=== PATIENT | female | born 1995 | race Caucasian/White ===

== ENCOUNTER 2018-09-06 05:30 | Inpatient (IN) | payer OTHER ==
[2018-09-06 23:05] VITALS: BMI 30.1
[2018-09-06] MEDS ORDERED: Carboprost 250 MCG/ML AMP IM PRN (23:07)
[2018-09-06] MEDS ORDERED: Methylergonovine 0.2 MG/ML VIAL IM PRN (23:07)
[2018-09-06] MEDS ORDERED: Lidocaine 1% (PF) 30 ML VIAL SC PRN (23:07)
[2018-09-06] MEDS ORDERED: NS w/ Oxytocin 10 units 500 ML IV SCH ×2 (23:07→23:30)
[2018-09-06] MEDS ORDERED: Ondansetron PF 4 MG/2 ML Vial IVP PRN (23:07)
[2018-09-06] MEDS ORDERED: Butorphanol Tartrate 1 MG/ML VIAL SLOW IVP PRN (23:07)
[2018-09-06] MEDS ORDERED: Misoprostol 200 MCG TAB PR PRN (23:07)
[2018-09-06] MEDS ORDERED: HYDROcodone/Acetaminophen 5/325 mg Tablet PO PRN (23:07)
[2018-09-06] MEDS ORDERED: Diphenoxylate HCl/Atropine Tablet PO PRN (23:07)
[2018-09-06] MEDS ORDERED: Ibuprofen 800 MG TAB PO PRN (23:07)
[2018-09-06] MEDS: Lactated Ringer's 1,000 ML IV SCH (23:20)
[2018-09-06 23:37] LABS: Hemoglobin 9.9 g/dL (12.0-16.0); Mean Corpuscular HGB CONC 31.4 g/dL (32.0-36.0); Mean Corpuscular Volume 76.5 fL (78.0-98.0); Mean Platelet Volume 7.6 fL (7.4-10.4); Platelet Count 259 thou/uL (130-400); RBC Distribution Width 15.9 % (11.5-14.5); Red Blood Cell (RBC) Count 4.12 mill/uL (4.00-5.20); White Blood Cell (WBC) Count 10.2 thou/uL (4.8-10.8)
[2018-09-06] MEDS: Misoprostol 100 MCG TAB PO SCH (23:37)
[2018-09-07 00:07] LABS: Hep B Surf Ag Non-Reactive S/CO (NonReactive); Syphilis Antibody Nonreactive (Nonreactive); Syphilis Antibody Index 0.03 S/CO (<1.00 Non-Reactive)
[2018-09-07] MEDS ORDERED: Fentanyl 4 mcg/Bup 0.1% Cadd 100 ML ONE (02:47)
[2018-09-07] MEDS: Lactated Ringer's 1,000 ML IV SCH (02:59)
[2018-09-07] MEDS ORDERED: Ondansetron PF 4 MG/2 ML Vial IVP PRN ×2 (03:32→12:15)
[2018-09-07] MEDS ORDERED: ePHEDrine/0.9% NaCl/PF SYRINGE 50 mg/10 ml SLOW IVP PRN (03:32)
[2018-09-07] MEDS ORDERED: Hydrocerin (Eucerin) Cream 120 gm Jar TOP PRN (03:32)
[2018-09-07] MEDS ORDERED: Lactated Ringer's 500 ML IV PRN (03:32)
[2018-09-07] MEDS ORDERED: diphenhydrAMINE 50 MG/ML VIAL IVP PRN (03:32)
[2018-09-07] MEDS ORDERED: Acetaminophen 325 MG TAB PO PRN (03:32)
[2018-09-07] MEDS ORDERED: Promethazine HCl 25 MG/ML VIAL IM PRN (03:32)
[2018-09-07] MEDS ORDERED: Naloxone HCl 0.4 mg/ml Vial IVP PRN ×2 (03:32)
[2018-09-07] MEDS ORDERED: Fentanyl 4 mcg/Bupivacaine 0.1% Cassette 100 ML EPIDURAL SCH (03:45)
[2018-09-07] MEDS ORDERED: Communication Order-Pharmacy FS SCH (03:45)
[2018-09-07] MEDS: NS / Oxytocin 40 units/1000ml 1,000 ML IV PRN ×2 (10:08→11:05)
[2018-09-07] MEDS ORDERED: Preparation H Ointment 28 GM TUBE PR PRN (12:15)
[2018-09-07] MEDS ORDERED: Lanolin Ointment 7 GM TUBE TOP PRN (12:15)
[2018-09-07] MEDS ORDERED: Bisacodyl 10 MG SUPP PR PRN (12:15)
[2018-09-07] MEDS ORDERED: Benzocaine/Menthol 20-0.5% 60 ML CAN TOP PRN (12:15)
[2018-09-07] MEDS ORDERED: NS / Oxytocin 40 units/1000ml 1,000 ML IV SCH (12:15)
[2018-09-07] MEDS ORDERED: HYDROcodone/Acetaminophen 5/325 mg Tablet PO PRN ×2 (12:15)
[2018-09-07] MEDS ORDERED: Milk Of Magnesia 30 ML UDCUP PO PRN (12:15)
[2018-09-07] MEDS ORDERED: diphenhydrAMINE 25 MG CAP PO PRN (12:15)
[2018-09-07] MEDS: Misoprostol 100 MCG TAB PO SCH (13:18)
[2018-09-07] MEDS: Ibuprofen 800 MG TAB PO SCH ×2 (14:24→21:54)
[2018-09-07] MEDS: Ferrous Sulfate 325 MG TAB PO SCH (17:52)
[2018-09-07] MEDS: Docusate Calcium (SURFAK) 240 MG CAP PO SCH (21:15)
[2018-09-08] MEDS: Ibuprofen 800 MG TAB PO SCH ×2 (05:56→14:21)
[2018-09-08 06:16] LABS: Hemoglobin 9.2 g/dL (12.0-16.0); Mean Corpuscular HGB CONC 30.2 g/dL (32.0-36.0); Mean Corpuscular Hemoglobin 23.5 pg (25.0-35.0); Mean Corpuscular Volume 77.8 fL (78.0-98.0); Mean Platelet Volume 7.6 fL (7.4-10.4); Platelet Count 220 thou/uL (130-400); RBC Distribution Width 16.2 % (11.5-14.5); Red Blood Cell (RBC) Count 3.91 mill/uL (4.00-5.20); White Blood Cell (WBC) Count 14.6 thou/uL (4.8-10.8)
[2018-09-08] MEDS: Ferrous Sulfate 325 MG TAB PO SCH ×2 (08:54→18:32)
[2018-09-08] MEDS: Docusate Calcium (SURFAK) 240 MG CAP PO SCH (08:54)
[2018-09-08] MEDS ORDERED: Prenatal Vitamin 1 TAB PO SCH (09:00)
[2018-09-08 11:13] VITALS: BP 97/56; TEMP 98
== END 2018-09-08 19:37 | disposition home or self-care (01) | DRG 807 ==
LOC: L&D 22:38 → 3SW 09-07 13:15
PROVIDERS: ADMIT Family Medicine; ATTEND Family Medicine
PROC: 10E0XZZ Delivery of Products of Conception, External Approach (ICD-10-PCS; principal; 2018-09-07)
PROC: 0KQM0ZZ Repair Perineum Muscle, Open Approach (ICD-10-PCS; 2018-09-07)
PROC: 10907ZC Drainage of Amniotic Fluid, Therapeutic from Products of Conception, Via Natural or Artificial Opening (ICD-10-PCS; 2018-09-07)
PROC: 3E033VJ Introduction of Other Hormone into Peripheral Vein, Percutaneous Approach (ICD-10-PCS; 2018-09-07)
DX: O70.1 Second degree perineal laceration during delivery (principal); Z37.0 Single live birth; Z3A.39 39 weeks gestation of pregnancy
CPT/HCPCS: 36415; 51702; 85027; 86780; 86850; 86900; 86901; 87340

== ENCOUNTER 2020-03-07 14:02 | Emergency (ER) | payer OTHER, SELFPAY ==
[2020-03-08 10:56] LABS: SARS-CoV-2 MS2 Positive; SARS-CoV-2 N Gene Negative; SARS-CoV-2 S Gene Negative; SARS-CoV-2 orf1ab Negative
== END 2020-03-07 14:47 | disposition home or self-care (01) ==
LOC: ERS 14:02
DX: B34.9 Viral infection, unspecified (principal); R51 Headache; R11.10 Vomiting, unspecified; Z20.828 Contact with and (suspected) exposure to other viral communicable diseases
CPT/HCPCS: 87635; 99283; U0003

== ENCOUNTER 2020-08-22 08:40 | Emergency (ER) | payer OTHER, SELFPAY ==
[2020-08-22 16:15] LABS: SARS-CoV-2 MS2 Positive; SARS-CoV-2 N Gene Negative; SARS-CoV-2 S Gene Negative; SARS-CoV-2 by NAA Not Detected (NotDetected); SARS-CoV-2 orf1ab Negative
== END 2020-08-22 09:05 | disposition home or self-care (01) ==
LOC: ERS 08:40
DX: Z20.828 Contact with and (suspected) exposure to other viral communicable diseases (principal)
CPT/HCPCS: 87635; 99283; U0003

== ENCOUNTER 2021-10-16 09:09 | Emergency (ER) | payer OTHER ==
[2021-10-16] MEDS ORDERED: Ondansetron ODT 4 MG TAB ONE (11:05)
[2021-10-16] MEDS ORDERED: Acetaminophen 500 MG TAB ONE (11:05)
[2021-10-16 15:26] LABS: SARS-CoV-2 PCR by NAA Not Detected (NotDetected)
== END 2021-10-16 11:10 | disposition home or self-care (01) ==
LOC: ERS 09:09
DX: J11.1 Influenza due to unidentified influenza virus with other respiratory manifestations (principal); Z20.822 Contact with and (suspected) exposure to COVID-19
CPT/HCPCS: 87804; 99283; Q0162; U0003; U0005

== ENCOUNTER 2023-01-27 09:21 | Emergency (ER) | payer OTHER, SELFPAY ==
[~2023-01-27 09:21] MED LIST: Iopamidol-370 76% 500 ML MDV (1 ML CHARGE) ONE
[2023-01-27] MEDS ORDERED: Ondansetron PF 4 MG/2 ML Vial ONE (09:45)
[2023-01-27] MEDS ORDERED: Ketorolac Tromethamine 30 MG/ML VIAL ONE (09:45)
[2023-01-27 10:18] LABS: #Eosinphils 0.4 thou/uL (0.0-0.7); #Lymphocytes 2.6 thou/uL (1.20-3.40); #Monocytes 0.4 thou/uL (0.11-0.59); #Neutrophils 4.3 thou/uL (1.40-6.50); %Basophils 0.6 % (0.0-1.0); %Eosinophils 5.4 % (0.0-10.0); %Lymphocytes 33.7 % (21.0-51.0); %Monocytes 4.9 % (0.0-10.0); %Neutrophils 55.3 % (42.0-75.0); Hemoglobin 12.9 g/dL (12.0-16.0); Mean Corpuscular HGB CONC 33.1 g/dL (32.0-36.0); Mean Corpuscular Hemoglobin 31.7 pg (27.0-31.0); Mean Corpuscular Volume 95.7 fl (78.0-98.0); Mean Platelet Volume 7.3 fL (7.4-10.4); Platelet Count 236 10x3/uL (130-400); RBC Distribution Width 11.2 % (11.5-14.5); Red Blood Cell (RBC) Count 4.08 mill/uL (4.20-5.40); White Blood Cell (WBC) Count 7.8 10x3/uL (4.8-10.8)
[2023-01-27 10:38] LABS: ALT (SGPT) 17 U/L (8-55); AST (SGOT) 13 U/L (5-34); Albumin 3.8 g/dL (3.5-5.0); Alkaline Phosphatase 74 U/L (40-110); Anion Gap 11 mmol/L (10-20); BUN (Urea Nitrogen) 8 mg/dL (7.0-18.7); Bilirubin, Total 0.3 mg/dL (0.2-1.2); Calc. Creatinine Clearance 0 mL/min (70-130); Calcium 8.7 mg/dL (7.8-10.44); Carbon Dioxide 22 mmol/L (22-29); Chloride 107 mmol/L (98-107); Estimated GFR 126; Globulin 2.7 g/dL (2.4-3.5); Glucose 89 mg/dL (70-105); Lipase 13 U/L (8-78); Potassium 4.1 mmol/L (3.5-5.1); Protein, Total 6.5 g/dL (6.0-8.3); Sodium 136 mmol/L (136-145)
[2023-01-27 10:39] LABS: Acetaminophen Less than 10.0 mcg/mL (10.0-30.0); Alcohol Less than 10 mg/dL (Less than 10); Magnesium 1.9 mg/dL (1.6-2.6); Salicylate Less than 8.0 mg/dL (15.0-30.0)
[2023-01-27 10:54] LABS: BHCG - Serum Negative (NEGATIVE); Pregs Control Background? CLEAR/WHITE (CLR/WHITE); Pregs Control Bar Appear? YES (CONTROL BAR)
[2023-01-27 11:11] LABS: Amphetamine Not Detected (NotDetected); Barbiturates Screen Not Detected (NotDetected); Benzodiazepine Screen Not Detected (NotDetected); Cocaine Metabolite Screen Detected (NotDetected); Methadone Not Detected (NotDetected); Methamphetamine Not Detected (NotDetected); Opiate Screen Not Detected (NotDetected); Oxycodone Screen Not Detected (NotDetected); Phencyclidine (PCP) Not Detected (NotDetected); THC/Cannabinoid Screen Detected (NotDetected); Tricyclic Screen Not Detected (NotDetected)
== END 2023-01-27 11:55 | disposition home or self-care (01) ==
LOC: ERS 09:21
DX: R11.10 Vomiting, unspecified (principal); F14.10 Cocaine abuse, uncomplicated
CPT/HCPCS: 74177; 80053; 80306; 80307; 83690; 83735; 84703; 85025; 96361; 96374; 96375; J1885; J2405; Q9967

== ENCOUNTER 2023-10-23 20:14 | Emergency (ER) | payer MEDICAID, SELFPAY ==
[2023-10-23] MEDS ORDERED: Ketorolac Tromethamine 30 MG (1 mL) VIAL ONE (21:22)
[2023-10-23] MEDS ORDERED: Ondansetron PF 4 MG/2 ML Vial ONE (21:22)
[2023-10-23 21:27] LABS: Bilirubin Negative (Negative); Blood, Urine 3+ (Negative); CAUTI Indications for Culture Pelvic or flank pain; Clarity Clear (Clear); Glucose, Urine (Dipstick) Normal (Negative); Ketone, Urine Negative (Negative); Leukocyte 75 Leu/uL (Negative); Nitrite Negative (Negative); Protein, Urine (Dipstick) Negative (Neg-Trace); RBC/HPF 0-3 HPF (0-3); Specific Gravity, Urine 1.008 (1.002-1.036); Squamous Epithelial 0-3 HPF (0-3); Urobilinogen Normal mg/dL (Less than 2)
[2023-10-23 21:28] LABS: Bacteria/HPF 1+ HPF (None Seen)
[2023-10-23 21:29] LABS: Urine Culture Reflex No No
[2023-10-23 21:59] LABS: #Monocytes 0.5 thou/uL (0.11-0.59); #Neutrophils 9.4 thou/uL (1.40-6.50); %Basophils 0.2 % (0.0-1.0); %Eosinophils 0.3 % (0.0-10.0); %Lymphocytes 17.8 % (21.0-51.0); %Neutrophils 77.4 % (42.0-75.0); Hematocrit 40.3 % (36.0-47.0); Hemoglobin 13.5 g/dL (12.0-16.0); Mean Corpuscular HGB CONC 33.5 g/dL (32.0-36.0); Mean Corpuscular Hemoglobin 31.6 pg (27.0-31.0); Mean Corpuscular Volume 94.4 fl (78.0-98.0); Mean Platelet Volume 9.4 fL (7.4-10.4); Platelet Count 226 10x3/uL (130-400); RBC Distribution Width 11.9 % (11.5-14.5); Red Blood Cell (RBC) Count 4.27 mill/uL (4.20-5.40); White Blood Cell (WBC) Count 12.2 10x3/uL (4.8-10.8)
[2023-10-23 22:16] LABS: BHCG - Serum Negative (NEGATIVE); Pregs Control Background? CLEAR/WHITE (CLR/WHITE); Pregs Control Bar Appear? YES (CONTROL BAR)
[2023-10-23 22:28] LABS: ALT (SGPT) 35 U/L (8-55); AST (SGOT) 26 U/L (5-34); Albumin 4.3 g/dL (3.5-5.0); Alkaline Phosphatase 98 U/L (40-110); Anion Gap 14 mmol/L (10-20); BUN (Urea Nitrogen) 9 mg/dL (7.0-18.7); Bilirubin, Total 0.4 mg/dL (0.2-1.2); Calc. Creatinine Clearance 0 mL/min (70-130); Calcium 9.2 mg/dL (7.8-10.44); Carbon Dioxide 25 mmol/L (22-29); Chloride 103 mmol/L (98-107); Estimated GFR 108; Globulin 3.5 g/dL (2.4-3.5); Glucose 88 mg/dL (70-105); Potassium 3.9 mmol/L (3.5-5.1); Protein, Total 7.8 g/dL (6.0-8.3); Sodium 138 mmol/L (136-145)
== END 2023-10-23 23:04 | disposition home or self-care (01) ==
LOC: ERS 20:14
DX: N93.9 Abnormal uterine and vaginal bleeding, unspecified (principal); N83.291 Other ovarian cyst, right side
CPT/HCPCS: 76856; 80053; 81001; 84703; 85025; 93976; 96374; 96375; J1885; J2405